=== PATIENT | male | born 1965 | race Caucasian/White ===

== ENCOUNTER 2022-04-25 05:35 | Inpatient (IN) | payer OTHER, SELFPAY ==
[2022-04-25] VITALS (28 sets, daily range): BP systolic 82–149; BP diastolic 53–97; PULSE 51–104; RESP 0–21; TEMP 36.2–36.6; O2SAT 85–100; BMI 21.7
--- NOTE | ~2022-04-25 | CT_ITS ---
EXAMINATION: CT abdomen pelvis wo con DATE: 04/25/2022 08:02 INDICATION: Abdominal pain TECHNIQUE: Computed tomography (CT) of the abdomen and pelvis was performed without intravenous contr ast. Automated exposure control and iterative reconstruction technique were employed. The dose-length product was 612.18 mGy-cm. COMPARISON: 11/30/2013 FINDINGS: Mild atelectasis at the bilateral lung bases. Heart size is normal. No pericardial or pleural effusio n. Calcified nodule at the dome of the liver consistent with old granulomatous disease. Cholecystecto my clips the gallbladder fossa. Spleen, pancreas, bilateral adrenal glands and right kidney are mckenna l. Mild left hydronephrosis. No urolithiasis or other obstructing lesion along the course of the left ureter. Bladder is partially decompressed with prominent wall thickening. 8.1 x 7.0 cm ball of stool at the rectum. Masslike suture line at the rectosigmoid junction with short sigmoid colon suggesting prior prior partial colectomy. The appendix is not visualized. No pericecal inflammatory stranding t o suggest acute appendicitis. No bowel obstruction. No free intraperitoneal gas or fluid. No patholog ically enlarged abdominal or pelvic lymphadenopathy. Several small fat-containing ventral hernias. Mi ld lumbar dextrocurvature with severe spondylosis. IMPRESSION: 1. Prominent wall thickening of the partially decompressed bladder which raises concern for cystitis. Correlate with urinalysis. 2. Mild left hydronephrosis without evident obstructing stone or mass. 3. 8.1 x 7.0 cm ball of stool at the rectum and could not exclude this patient with fecal impaction a lthough there is only a small to moderate amount of more proximal colonic stool. Reviewed, dictated and finalized at location A. IMPRESSION: 1. Prominent wall thickening of the partially decompressed bladder which raises concern for cystitis. Correlate with urinalysis. 2. Mild left hydronephrosis without evident obstructing stone or mass. 3. 8.1 x 7.0 cm ball of stool at the rectum and could not exclude this patient with fecal impaction although there is only a small to moderate amount of more proximal colonic stool.
--- NOTE | ~2022-04-25 | CT_ITS ---
EXAMINATION: CT brain wo con DATE: 04/25/2022 06:10 INDICATION: Altered mental status. Unresponsive. TECHNIQUE: Computed tomography (CT) of the head was performed without intravenous contrast. Sagittal and coronal reconstructions were performed. The mA was adjusted according to patient size. Iterative reconstruction technique was employed. The dose-length product was 605.33 mGy-cm. COMPARISON: None FINDINGS: No acute intracranial hemorrhage, acute infarction or abnormal extra axial fluid collection. Symmetri c prominence of the sulci and ventricles entry level marketing assistant with moderate diffuse cerebral volume loss which i s disproportionate for age. No mass/mass effect. The orbits, paranasal sinuses and mastoid air cells are normal. IMPRESSION: 1. Moderate diffuse volume loss which is disproportionate for age. No acute intracranial process. Reviewed, dictated and finalized at location A. IMPRESSION: 1. Moderate diffuse volume loss which is disproportionate for age. No acute int racranial process.
--- NOTE | ~2022-04-25 | XR_ITS ---
EXAMINATION: XR chest 1V portable DATE: 04/25/2022 06:15 INDICATION: Cough TECHNIQUE: frontal view of the chest was obtained. COMPARISON: None FINDINGS: Mild streaky bibasilar atelectasis. No pleural effusion or pneumothorax. The cardiomediastinal silhou ette is normal. Moderate thoracic spondylosis. IMPRESSION: 1. Mild bibasilar atelectasis. Reviewed, dictated and finalized at location A.
--- NOTE | 2022-04-25 05:48 | ECG_ITS ---
Measurements Intervals Hiram Rate: 73 P: 9 MS: 123 QRS: 75 QRSD: 86 T: 51 QT: 394 QTc: 436 Interpretive Statements SINUS RHYTHM BASELINE ARTIFACT- I, II, III, AVL, AVF, V1-V3, V6 NORMAL ECG Electronically Signed On 04-25-2022 8:11:02 CDT by Boyd Benavides D.O.
[2022-04-25 05:49] LABS: Glucose Point of Care 89 mg/dl (65-105)
--- NOTE | 2022-04-25 05:55 | ED.AMS ---
HPI - Altered Mental Status General Chief Complaint: Altered Mental Status <Juanpablo Irizarry MD - Last Filed: 04/25/22 07:08> Stated Complaint: unresponsive, shaking <Juanpablo Irizarry MD - Last Filed: 04/25/22 07:08> Time Seen by Provider: 04/25/22 05:48 <Juanpablo Irizarry MD - Last Filed: 04/25/22 07:08> History of Present Illness HPI narrative: Patient is a 56-year-old male with a history of Down syndrome brought in by EMS due to altered mental status, decreased responsiveness. According to longterm staff they woke him up for breakfast and when he got up he started shaking and became unresponsive. Based on his HI record, he has no history of seizures but spoke to sister who is in [place] right now visiting claims that he had a similar episode last year, but during patient's work-up but they were never able to to prove that he had a seizure, and the episode has not recurred since, but since then he has not been able to walk and is only oriented to himself and only able to talk 1 word at a time. Unable to get any history from the patient due to his altered mental status. Sister confirmed that patient is a DNR. <Juanpablo Irizarry MD - Last Filed: 04/25/22 07:08> Related Data Allergies/Adverse Reactions: Allergies Allergy/AdvReac Type Severity Reaction Status Date / Time No Known Allergies Allergy Unverified 04/15/20 10:25 <Juanpablo Irizarry MD - Last Filed: 04/25/22 07:08> Review of Systems Review of Systems: ROS unobtainable: Yes unobtainable due to mental status <Juanpablo Irizarry MD - Last Filed: 04/25/22 07:08> PMFSH Comments Past medical history: Down syndrome Family history: Unknown Social history: Lives at longterm <Juanpablo Irizarry MD - Last Filed: 04/25/22 07:08> Exam Const: Limitations: altered mental status <Juanpablo Irizarry MD - Last Filed: 04/25/22 07:08> Other: Lethargic <Juanpablo Irizarry MD - Last Filed: 04/25/22 07:08> HENMT: Head: normal to inspection, normocephalic and atraumatic <Juanpablo Irizarry MD - Last Filed: 04/25/22 07:08> Ears: hearing grossly normal bilaterally, TM normal on the right and TM normal on the left <Juanpablo Irizarry MD - Last Filed: 04/25/22 07:08> General nose exam: Normal external nose present, Normal nares present and No nasal discharge present <Juanpablo Irizarry MD - Last Filed: 04/25/22 07:08> Face and sinus: normal facial exam <MD Alicia Dunlap Last Filed: 04/25/22 07:08> Mouth: Yes Normal oral and palatal mucosa present, Yes lip normal and Yes tongue normal <MD Alicia Dunlap Last Filed: 04/25/22 07:08> Throat: tonsils normal and uvula midline <MD Alicia Dunlap Last Filed: 04/25/22 07:08> Eyes: General: appearance normal, both eyes and all related structures <Juanpablo Irizarry MD - Last Filed: 04/25/22 07:08> Pupils: Equal, round and reactive pupils present <MD Alicia Dunlap Last Filed: 04/25/22 07:08> EOM: EOMs intact bilaterally <Juanpablo Irizarry MD - Last Filed: 04/25/22 07:08> Neck: Neck: normal visual inspection <MD Alicia Dunlap Last Filed: 04/25/22 07:08> Chest: Chest palpation & inspection: normal inspection of the chest <Juanpablo Irizarry MD - Last Filed: 04/25/22 07:08> Resp: Effort & Inspection: normal respiratory effort, no respiratory distress and not tachypneic <MD Alicia Dunlap Last Filed: 04/25/22 07:08> Auscultation: clear to auscultation bilaterally, no crackles, no rales, no rhonchi and no wheezes <MD Alicia Dunlap Last Filed: 04/25/22 07:08> Cardio: Rate: regular rate <Juanpablo Irizarry MD - Last Filed: 04/25/22 07:08> Rhythm: regular rhythm <Juanpablo Irizarry MD - Last Filed: 04/25/22 07:08> GI: Inspection: normal to inspection <Juanpablo Irizarry MD - Last Filed: 04/25/22 07:08> GI Palp: No abdominal tenderness, Yes Soft to palpation, No Tenderness to palpation present (GI), No Guarding due to palpation present (GI), N
[2022-04-25 06:07] LABS: Basophils Percent Auto 0.7 % (0.2-1.2); Eosinophils Absolute Auto 0.1 K/mm3 (0-0.3); Eosinophils Percent Auto 0.9 % (0-4.4); Hematocrit 38.5 % (42.0-52.0); Hemoglobin 12.8 g/dL (14.0-18.0); Immature Granulocyte Absolute 0.02 K/mm3 (0.00-0.031); Immature Granulocyte Percent A 0.4 % (0-0.5); Lymphocytes Absolute Auto 1.63 K/mm3 (0.9-3.2); Lymphocytes Percent Auto 30.4 % (18.3-44.2); Mean Corpuscular HGB Conc 33.2 g/dl (32-36); Mean Corpuscular Hemoglobin 34.4 pg (26-34); Mean Corpuscular Volume 103.5 fl (80-100); Mean Platelet Volume 10.1 fl (7.4-10.4); Monocytes Absolute Auto 0.6 K/mm3 (0.1-0.6); Monocytes Percent Auto 10.4 % (2.6-8.5); Neutrophils Absolute Auto 3.1 K/mm3 (1.3-6.7); Neutrophils Percent Auto 57.2 % (45.5-73.1); Platelet Count Result 134 k/mm3 (150-375); Red Blood Count 3.72 M/mm3 (4.6-6.20); Red Cell Distribution Width 13.8 % (11.5-14.5); White Blood Count 5.4 K/mm3 (4.5-10.0)
[2022-04-25 06:20] LABS: Lactic Acid Reflex 3.6 mmol/L (0.7-2.0)
[2022-04-25] MEDS: SODIUM CHLORIDE 0.9% IV 1,000 ML 999 ML IV CONT ×2 (06:42→07:05)
[2022-04-25 06:51] LABS: Appearance Urine Cloudy (Clear); Bilirubin Urine Negative (Negative); Blood Urine 2+ (Negative); Color Urine Other (Yellow); Glucose Urine UA Negative (Negative); Ketones Urine Negative (Negative); Leukocyte Esterase Ur 3+ LEU/UL (Negative); Nitrate Urine Negative (Negative); Protein Urine Negative (Negative); Specific Grav Ur 1.015 (1.001-1.035); Urobilinogen Urine 0.2 mg/dL (<2.0)
[2022-04-25 06:58] LABS: Bacteria Urine Trace /hpf; WBC Clumps Urine Present /HPF; WBC Urine >75 /hpf
[2022-04-25 06:59] LABS: Alanine Aminotransferase 17 U/L (6-50); Albumin Level 3.2 g/dL (3.5-5.1); Alkaline Phosphatase 101 U/L (38-126); Anion Gap 8 mmol/L (8-16); Aspartate Amino Transferase 21 U/L (17-59); Bilirubin,Total 0.6 mg/dL (0.2-1.3); Blood Urea Nitrogen 13 mg/dL (9-20); Calcium 7.6 mg/dL (8.4-10.2); Carbon Dioxide 24 mmol/L (22-30); Chloride 109 mmol/L (98-107); Estimated CRCL calculation 67 ml/min; Estimated Glomerular Filt Rate > 60; Glucose 89 mg/dL (65-110); Potassium 3.7 mmol/L (3.4-5.0); Sodium 141 mmol/L (137-145)
--- NOTE | 2022-04-25 07:04 | PC.NURSE ---
PTs BP 84/53 ERP made aware. Order for 3rd L NS. Pt recieved 1 L with EMS and 1 L here.
[2022-04-25 07:05] LABS: Add Urine Microscopic? YES
[2022-04-25 07:11] LABS: Troponin I < 0.012 ng/mL (0.000-0.034)
[2022-04-25 07:50] LABS: Lipase 26 U/L (23-300)
[2022-04-25 08:16] LABS: SARS-CoV-2 RNA PCR Negative
[2022-04-25 09:05] LABS: Reflex Lactic Acid Yes or No Add Lactic
[2022-04-25] MEDS: MIDODRINE HCL 2.5 MG TABLET 5 MG PO (09:13)
[2022-04-25 09:53] LABS: Lactic Acid 1.8 mmol/L (0.7-2.0)
--- NOTE | 2022-04-25 10:46 | PM.IMHP ---
H&P: HPI History of Present Illness Date/Time: 04/25/22 0953 Chief Complaint: AMS Narrative: This 56 year old male patient with significant PMH of Down's Syndrome, pseudoseizures, Gout, GERD, and hypothyroidism who resides in a [facility] is brought to the ER via EMS after having a change in his mental status today. Pt. himself is a poor historian and at best only speaks one word at a time, however, today he is not talking when asked questions. According to [facility] staff, the patient had just woke up for breakfast and when he got up, he started shaking and became unresponsive. Upon the ER physician speaking to the POA, who is currently in the [place], she tells him of previous episodes identical to this that prompted evaluation and it was determined that the pt. was having pseudoseizures as his workup was normal. Since then he speaks very little, but is not treated with any anti-epileptics and he has not had any noted seizures. The pt. is a DNR comfort according to her but she would like any treatable condition treated. In ER his workup is significant for UTI with 3+ Leuks, 2+ Blood and >[address] head was negative for any intracranial hemorrhage, and no midline shift or mass effect. Review of Systems Review of Systems: Pt. is lying on stretcher in no acute distress. He is alert, but does not answer any questions. ROS unobtainable: Yes unobtainable due to mental status PMFSH Past Medical History Medical History Down's syndrome GERD (gastroesophageal reflux disease) Gout Hypothyroidism Pseudoseizures Social History Social History Social History[facility] Smoking packs per day: 0 Smoking cigarettes per day: 0.0 Alcohol intake: unknown Substance use: unknown Living arrangements: [facility] Occupation/Education: other Additional occupation/education comments: Disabled Gender identity (if verbalized by the patient): Male Meds Home Medications and Allergies Allergies Allergy/AdvReac Type Severity Reaction Status Date / Time No Known Allergies Allergy Unverified 04/15/20 10:25 Vital Signs Vital Signs - 24 hr 04/25/22 05:34 04/25/22 05:40 04/25/22 05:46 Temperature 97.1 F L Pulse Rate 69 76 Respiratory Rate 16 18 16 Blood Pressure 96/65 L 97/64 L Pulse Oximetry 95 04/25/22 06:55 04/25/22 05:45 04/25/22 06:18 Temperature Pulse Rate 58 L 76 69 Respiratory Rate 12 16 10 L Blood Pressure 109/55 L 97/64 L Pulse Oximetry 94 04/25/22 06:32 04/25/22 06:46 04/25/22 06:53 Temperature Pulse Rate 72 62 62 Respiratory Rate 19 14 18 Blood Pressure 82/57 L Pulse Oximetry 96 04/25/22 06:54 04/25/22 07:00 04/25/22 07:01 Temperature Pulse Rate 57 L 59 L 60 Respiratory Rate 9 L 7 L 7 L Blood Pressure 109/55 L 82/55 L Pulse Oximetry 96 95 04/25/22 07:02 04/25/22 07:15 04/25/22 07:16 Temperature Pulse Rate 61 74 68 Respiratory Rate 7 L 16 15 Blood Pressure 84/53 L 96/68 L Pulse Oximetry 95 100 04/25/22 08:02 04/25/22 08:45 04/25/22 08:46 Temperature Pulse Rate 60 51 L 54 L Respiratory Rate 11 L 0 L 11 L Blood Pressure 96/64 L Pulse Oximetry 04/25/22 09:00 04/25/22 09:15 04/25/22 09:30 Temperature Pulse Rate 59 L 54 L 65 Respiratory Rate 7 L 10 L 21 H Blood Pressure 82/62 L 98/65 L 110/92 H Pulse Oximetry 97 99 04/25/22 10:00 Temperature Pulse Rate 57 L Respiratory Rate 8 L Blood Pressure 89/65 L Pulse Oximetry Exam Narrative: Adult male patient noted to be lying supine on his stretcher at this time. Const: General: comfortable and no acute distress Other: Smiles at me upon my entry into the room, but does not answer any questions. He will not make one work statements either. HENMT: General nose exam: Normal nares present and no epistaxis Mouth: Yes moist mucous
[2022-04-25] MEDS: SODIUM CHLORIDE 0.9% IV 1,000 ML 100 ML IV CONT (11:11)
--- NOTE | 2022-04-25 11:41 | ADMGEN ---
This patient, Fer Mojica, was admitted to Medical Room 342-01. Patient/family oriented to hospital policies and general routines including ID bracelet, bed and alarms, visiting hours, pain management, procedures, bathroom and other care routines, personal items, smoking policy, room service/diet, and visiting hours. Information on how to activate the Rapid Response Team has been discussed. Patient/Family are encouraged to report perceived risks to care and to ask questions if they do not understand what they are told or what they should do.
[2022-04-25 12:07] LABS: Lactic Acid Reflex 0.8 mmol/L (0.7-2.0)
[2022-04-25 17:15] LABS: Free T4 Free Thyroxine Reflex 1.14 ng/dL (0.78-2.19)
[2022-04-26] VITALS (8 sets, daily range): BP systolic 97–98; BP diastolic 52–67; PULSE 56–78; RESP 16–18; TEMP 36.6–36.8; O2SAT 92–100
[2022-04-26 05:06] LABS: Total Triiodothyronine (T3) 2.71 NG/ML (0.97-1.69)
[2022-04-26] MEDS: SODIUM CHLORIDE 0.9% IV 1,000 ML 100 ML IV CONT ×2 (05:09→15:51)
[2022-04-26 05:42] LABS: Basophils Absolute Auto 0.1 K/mm3 (0.0-0.1); Eosinophils Percent Auto 0.4 % (0-4.4); Hematocrit 36.6 % (42.0-52.0); Hemoglobin 12.5 g/dL (14.0-18.0); Immature Granulocyte Absolute 0.02 K/mm3 (0.00-0.031); Immature Granulocyte Percent A 0.4 % (0-0.5); Lymphocytes Absolute Auto 1.56 K/mm3 (0.9-3.2); Lymphocytes Percent Auto 29.7 % (18.3-44.2); Mean Corpuscular HGB Conc 34.2 g/dl (32-36); Mean Corpuscular Hemoglobin 34.8 pg (26-34); Mean Corpuscular Volume 101.9 fl (80-100); Mean Platelet Volume 10.5 fl (7.4-10.4); Monocytes Absolute Auto 0.5 K/mm3 (0.1-0.6); Monocytes Percent Auto 9.1 % (2.6-8.5); Neutrophils Absolute Auto 3.1 K/mm3 (1.3-6.7); Neutrophils Percent Auto 59.4 % (45.5-73.1); Platelet Count Result 145 k/mm3 (150-375); Red Blood Count 3.59 M/mm3 (4.6-6.20); Red Cell Distribution Width 13.6 % (11.5-14.5); White Blood Count 5.3 K/mm3 (4.5-10.0)
[2022-04-26 05:56] LABS: Alanine Aminotransferase 16 U/L (6-50); Albumin Level 2.8 g/dL (3.5-5.1); Alkaline Phosphatase 87 U/L (38-126); Anion Gap 7 mmol/L (8-16); Aspartate Amino Transferase 20 U/L (17-59); Bilirubin,Total 0.4 mg/dL (0.2-1.3); Blood Urea Nitrogen 12 mg/dL (9-20); Carbon Dioxide 25 mmol/L (22-30); Chloride 106 mmol/L (98-107); Estimated CRCL calculation 84 ml/min; Estimated Glomerular Filt Rate > 60; Glucose 91 mg/dL (65-110); Potassium 3.2 mmol/L (3.4-5.0); Sodium 138 mmol/L (137-145)
[2022-04-26] MEDS: ENOXAPARIN 40 MG/0.4 ML SYRINGE SUB-Q (09:36)
[2022-04-26] MEDS: PANTOPRAZOLE SODIUM IV 40 MG VIAL IV PUSH (09:37)
--- NOTE | 2022-04-26 11:22 | PM.IMPN ---
Progress Note: A&P Assessment and Plan (1) Acute UTI: Code(s): N39.0 - Urinary tract infection, site not specified Status: Acute Assessment and Plan: - Rocephin 1G started in ED and will be continued. - Continue NS at 100 ml/hr. - Awaiting urine culture results. - Lactic acid trended down to 0.8 after hydration. - Monitor labs and VS. Thus far they are stable. - Preliminary BC results are negative for any growth x2. (2) Altered mental status: Code(s): R41.82 - Altered mental status, unspecified Status: Acute Assessment and Plan: - Attempt to re-orient. - See POC for Problem #1. - Seizure precautions. - Fall precautions. (3) Hypothyroidism: Code(s): E03.9 - Hypothyroidism, unspecified Status: Acute Assessment and Plan: - Home medication of Levothyroxine 150 mcg reordered. - TSH is elevated at 11.800, but T4 is normal at 1.14. No adjustments to dose made. (4) GERD (gastroesophageal reflux disease): Code(s): K21.9 - Gastro-esophageal reflux disease without esophagitis Status: Acute Assessment and Plan: - PPI Therapy, Protonix 40 mg daily. (5) Gout: Code(s): M10.9 - Gout, unspecified Status: Acute Assessment and Plan: - Will monitor and re-order home meds as needed when they are verified. (6) Constipation: Code(s): K59.00 - Constipation, unspecified Status: Acute Assessment and Plan: - Fleets Enema ordered. - Senokot daily. - PRN Miralax ordered. (7) Hypotension: Code(s): I95.9 - Hypotension, unspecified Status: Acute Assessment and Plan: - Midodrine is continued from home medication list. - Monitor VS. Time Spent With Patient Time with patient: 15 - 25 minutes Subjective Date/time seen: 04/26/22914 This patient was examined at the bedside today in interval assessment after being admitted for acute UTI and altered mental status. Patient is not conversational, pleasant does not make an attempt to answer any questions, only smiles at me. He does not appear to be in any acute distress, he is lying supine in his bed at this time he does appear to be comfortable. Urine culture is still pending. Preliminary blood cultures have reported preliminarily negative for any growth. Review of Systems Review of Systems: ROS unobtainable: Yes unobtainable due to mental status Exam Narrative: Adult male patient lying supine in bed at this time in no acute distress. Const: General: comfortable and no acute distress Other: Not conversational, only smiles. Does not follow commands. HENMT: General nose exam: Normal nares present and no epistaxis Mouth: Yes moist mucous membranes Eyes: General: appearance normal, both eyes and all related structures Sclera: sclerae normal and normal sclerae Pupils: Equal, round and reactive pupils present EOM: EOM not intact bilaterally (Unable to assess as pt will not follow commands.) Neck: Neck: supple and no JVD Thyroid: thyroid normal Carotids: no bruits Lymphatic: lymphadenopathy not noted Chest: Other: No signs of being tender to palpation. Resp: Effort & Inspection: abnormal respiratory effort (Pt. will not follow commands to breathe deeply.) Auscultation: diminished lung sounds diffuse (Secondary to effort.) Cardio: Rate: regular rate Rhythm: regular rhythm Heart sounds: no gallops, no murmurs and no rubs GI: Inspection: non-distended Auscultation: normal bowel sounds Skin: General skin exam: normal color and no rashes or lesions noted Lesions: no lesions noted Rashes: no rashes noted Wounds: no wounds Neuro: General: No gait normal (unable to assess.) Cranial nerves: Yes Equal, round and reactive pupils present Speech: No normal speech (Mostly non-verbal. Occasionally says one word sentences.) Other: Will not follow commands to adequately assess the Neurological system. Extrem: General: normal to inspection, no tono
[2022-04-26] MEDS: LACTASE 3,000 UNIT TABLET 9000 UNIT PO (17:26)
[2022-04-26] MEDS: MIDODRINE HCL 2.5 MG TABLET 5 MG PO (17:26)
[2022-04-26] MEDS: MEMANTINE 10 MG TABLET PO (17:27)
[2022-04-26] MEDS: FAMOTIDINE 20 MG TABLET PO (18:29)
[2022-04-26] MEDS: SENNA/DOCUSATE SODIUM TABLET 1 TAB PO (22:44)
[2022-04-26] MEDS: MINERAL OIL/WHITE PETROLATUM OINTMENT 1 APPLIC EACH EYE (22:44)
[2022-04-27] VITALS (10 sets, daily range): BP systolic 80–161; BP diastolic 56–95; PULSE 59–102; RESP 16–20; TEMP 36.2–36.8; O2SAT 92–97
[2022-04-27] MEDS: SODIUM CHLORIDE 0.9% IV 1,000 ML 100 ML IV CONT ×2 (03:59→14:05)
[2022-04-27 05:46] LABS: Basophils Absolute Auto 0.1 K/mm3 (0.0-0.1); Eosinophils Absolute Auto 0.1 K/mm3 (0-0.3); Immature Granulocyte Absolute 0.01 K/mm3 (0.00-0.031); Immature Granulocyte Percent A 0.2 % (0-0.5); Lymphocytes Absolute Auto 1.75 K/mm3 (0.9-3.2); Lymphocytes Percent Auto 33.7 % (18.3-44.2); Mean Corpuscular HGB Conc 33.3 g/dl (32-36); Mean Corpuscular Hemoglobin 34.1 pg (26-34); Mean Corpuscular Volume 102.3 fl (80-100); Mean Platelet Volume 10.2 fl (7.4-10.4); Monocytes Absolute Auto 0.5 K/mm3 (0.1-0.6); Monocytes Percent Auto 8.9 % (2.6-8.5); Neutrophils Absolute Auto 2.9 K/mm3 (1.3-6.7); Neutrophils Percent Auto 55.2 % (45.5-73.1); Platelet Count Result 128 k/mm3 (150-375); Red Blood Count 3.52 M/mm3 (4.6-6.20); Red Cell Distribution Width 13.9 % (11.5-14.5); White Blood Count 5.2 K/mm3 (4.5-10.0)
[2022-04-27 06:01] LABS: Alanine Aminotransferase 15 U/L (6-50); Albumin Level 2.9 g/dL (3.5-5.1); Alkaline Phosphatase 83 U/L (38-126); Anion Gap 6 mmol/L (8-16); Aspartate Amino Transferase 21 U/L (17-59); Bilirubin,Total 0.4 mg/dL (0.2-1.3); Blood Urea Nitrogen 11 mg/dL (9-20); Calcium 7.8 mg/dL (8.4-10.2); Carbon Dioxide 30 mmol/L (22-30); Chloride 106 mmol/L (98-107); Estimated CRCL calculation 74 ml/min; Estimated Glomerular Filt Rate > 60; Glucose 90 mg/dL (65-110); Magnesium 1.8 mg/dL (1.6-2.3); Potassium 3.3 mmol/L (3.4-5.0); Sodium 142 mmol/L (137-145)
[2022-04-27] MEDS: LACTASE 3,000 UNIT TABLET 9000 UNIT PO ×3 (09:08→15:31)
[2022-04-27] MEDS: ASPIRIN 81 MG CHEWABLE TABLET PO (09:08)
[2022-04-27] MEDS: ENOXAPARIN 40 MG/0.4 ML SYRINGE SUB-Q (09:08)
[2022-04-27] MEDS: ATORVASTATIN 40 MG TABLET PO (09:08)
[2022-04-27] MEDS: MEMANTINE 10 MG TABLET PO ×2 (09:09→15:31)
[2022-04-27] MEDS: FLUTICASONE PROPIONATE 0.05% NA SPR 16 GM BTL (*BKC) 2 SPRAY NASAL (09:09)
[2022-04-27] MEDS: LORATADINE 10 MG TABLET PO (09:09)
[2022-04-27] MEDS: LEVOTHYROXINE SODIUM 150 MCG TABLET PO (09:09)
[2022-04-27] MEDS: MIDODRINE HCL 2.5 MG TABLET 5 MG PO ×2 (09:09→15:31)
[2022-04-27] MEDS: PANTOPRAZOLE SODIUM IV 40 MG VIAL IV PUSH (09:10)
[2022-04-27] MEDS: MONTELUKAST SODIUM 10 MG TABLET PO (09:10)
[2022-04-27] MEDS: FAMOTIDINE 20 MG TABLET PO ×2 (09:17→15:31)
[2022-04-27] MEDS: AMOXICILLIN/CLAVULANATE K 500-125 MG TAB 1 TABLET PO ×3 (11:52→20:59)
--- NOTE | 2022-04-27 14:49 | PC.NURSE ---
[employer] Supervisor spoke with hospitalist Dianne and was ordered to give midodrine earlier than scheduled 1700 dose due to low blood pressure.
--- NOTE | 2022-04-27 15:17 | PM.IMPN ---
Progress Note: A&P Assessment and Plan (1) Acute UTI: Code(s): N39.0 - Urinary tract infection, site not specified Status: Acute Assessment and Plan: - Urine culture grew out Pansensitive E.coli. Rocephin is discontinued and in it's place, according to the sensitivity, Augmentin is started. - Preliminary BC results are negative for any growth x2. (2) Altered mental status: Code(s): R41.82 - Altered mental status, unspecified Status: Acute Assessment and Plan: - Attempt to re-orient. - See POC for Problem #1. - Seizure precautions. - Fall precautions. (3) Hypothyroidism: Code(s): E03.9 - Hypothyroidism, unspecified Status: Acute Assessment and Plan: - Home medication of Levothyroxine 150 mcg reordered. - TSH is elevated at 11.800, but T4 is normal at 1.14. No adjustments to dose made. (4) GERD (gastroesophageal reflux disease): Code(s): K21.9 - Gastro-esophageal reflux disease without esophagitis Status: Acute Assessment and Plan: - PPI Therapy, Protonix 40 mg daily. (5) Gout: Code(s): M10.9 - Gout, unspecified Status: Acute Assessment and Plan: - Will monitor and re-order home meds as needed when they are verified. (6) Constipation: Code(s): K59.00 - Constipation, unspecified Status: Acute Assessment and Plan: - Fleets Enema ordered. - Senokot daily. - PRN Miralax ordered. (7) Hypotension: Code(s): I95.9 - Hypotension, unspecified Status: Acute Assessment and Plan: - Midodrine is continued from home medication list. - Monitor VS. - 04/27/22: This pt. became hypotensive at 1400 this afternoon with SBP of 80. It was not called to me by the RN, so my reaction time was delayed until I reviewed afternoon vitals. His Midodrine that is due at 1700 was ordered to be given early and a 1L fluid bolus is ordered. Pt's remaining VS are without abnormality. Time Spent With Patient Time with patient: 15 - 25 minutes Subjective Date/time seen: 04/27/22 0938 This pt was examined at the bedside today in interval assessment. He remains the same and appears to be in no acute distress. He arouses to verbal stimulation and he verbalized to me, Kyree, for the first time in three days. His Urine culture resulted and was positive for herron sensitive E.coli. Therefore, his Rocephin was changed to Augmentin. This afternoon the patient had a low SBP of 80. His Midodrine dose was given early and he was ordered a fluid bolus of 1L. Pt. remains alert and showing no signs of acute distress. He will be ready for discharge either tomorrow or the next day after making sure his BP is stable. Review of Systems Review of Systems: ROS unobtainable: Yes unobtainable due to mental status Exam Narrative: Adult male patient lying supine in bed at this time in no acute distress. Const: General: comfortable and no acute distress Other: Not conversational, only smiles. Does not follow commands. HENMT: General nose exam: Normal nares present and no epistaxis Mouth: Yes moist mucous membranes Eyes: General: appearance normal, both eyes and all related structures Sclera: sclerae normal and normal sclerae Pupils: Equal, round and reactive pupils present EOM: EOM not intact bilaterally (Unable to assess as pt will not follow commands.) Neck: Neck: supple and no JVD Thyroid: thyroid normal Carotids: no bruits Lymphatic: lymphadenopathy not noted Chest: Other: No signs of being tender to palpation. Resp: Effort & Inspection: abnormal respiratory effort (Pt. will not follow commands to breathe deeply.) Auscultation: diminished lung sounds diffuse (Secondary to effort.) Cardio: Rate: regular rate Rhythm: regular rhythm Heart sounds: no gallops, no murmurs and no rubs GI: Inspection: non-distended Auscultation: normal bowel sounds Skin: General skin exam: normal color and no rashes or lesions noted Lesion
[2022-04-27] MEDS: SODIUM CHLORIDE 0.9% IV 1,000 ML 999 ML IV CONT (15:41)
[2022-04-27] MEDS: SENNA/DOCUSATE SODIUM TABLET 1 TAB PO (20:53)
[2022-04-27] MEDS: MINERAL OIL/WHITE PETROLATUM OINTMENT 1 APPLIC EACH EYE (20:53)
[2022-04-28] VITALS: PULSE 60
[2022-04-28] MEDS: SODIUM CHLORIDE 0.9% IV 1,000 ML 100 ML IV CONT ×2 (02:19→13:28)
[2022-04-28 04:04] VITALS: PULSE 63
[2022-04-28 04:42] VITALS: BP 107/53; PULSE 88; RESP 20; TEMP 36.6; O2SAT 97
[2022-04-28 06:19] LABS: Basophils Percent Auto 0.6 % (0.2-1.2); Eosinophils Percent Auto 0.6 % (0-4.4); Hematocrit 40.2 % (42.0-52.0); Hemoglobin 13.3 g/dL (14.0-18.0); Immature Granulocyte Absolute 0.01 K/mm3 (0.00-0.031); Immature Granulocyte Percent A 0.2 % (0-0.5); Lymphocytes Absolute Auto 1.86 K/mm3 (0.9-3.2); Lymphocytes Percent Auto 29.6 % (18.3-44.2); Mean Corpuscular HGB Conc 33.1 g/dl (32-36); Mean Corpuscular Hemoglobin 34.1 pg (26-34); Mean Corpuscular Volume 103.1 fl (80-100); Mean Platelet Volume 10.1 fl (7.4-10.4); Monocytes Absolute Auto 0.5 K/mm3 (0.1-0.6); Monocytes Percent Auto 7.2 % (2.6-8.5); Neutrophils Absolute Auto 3.9 K/mm3 (1.3-6.7); Neutrophils Percent Auto 61.8 % (45.5-73.1); Platelet Count Result 146 k/mm3 (150-375); Red Cell Distribution Width 13.9 % (11.5-14.5); White Blood Count 6.3 K/mm3 (4.5-10.0)
[2022-04-28] MEDS: AMOXICILLIN/CLAVULANATE K 500-125 MG TAB 1 TABLET PO ×2 (06:21→13:23)
[2022-04-28 06:41] LABS: Alanine Aminotransferase 16 U/L (6-50); Albumin Level 3.3 g/dL (3.5-5.1); Alkaline Phosphatase 95 U/L (38-126); Anion Gap 6 mmol/L (8-16); Aspartate Amino Transferase 25 U/L (17-59); Bilirubin,Total 0.7 mg/dL (0.2-1.3); Blood Urea Nitrogen 9 mg/dL (9-20); Calcium 8.1 mg/dL (8.4-10.2); Carbon Dioxide 33 mmol/L (22-30); Chloride 104 mmol/L (98-107); Estimated CRCL calculation 74 ml/min; Estimated Glomerular Filt Rate > 60; Glucose 90 mg/dL (65-110); Magnesium 1.9 mg/dL (1.6-2.3); Potassium 3.5 mmol/L (3.4-5.0); Sodium 143 mmol/L (137-145)
--- NOTE | 2022-04-28 07:10 | PM.DS ---
DS: Admitting Diagnosis Discharge Date 04/28/2022 Admitting Diagnosis Acute UTI, Altered Mental Status, Hypothyroidism, GERD, Gout, Constipation, Hypotension DS: Discharge Diagnosis Discharge Diagnosis (1) Acute UTI: Code(s): N39.0 - Urinary tract infection, site not specified Status: Acute Assessment and Plan: - Urine culture grew out Pansensitive E.coli. Rocephin is discontinued and in it's place, according to the sensitivity, Augmentin is started. It will be continued for 9 days. - Blood cultures negative. (2) Altered mental status: Code(s): R41.82 - Altered mental status, unspecified Status: Acute Assessment and Plan: - Attempt to re-orient. - See POC for Problem #1. - Seizure precautions. - Fall precautions. - Pt. is at baseline and there have been no noted, or appreciable seizures or associated activity since his admission . (3) Hypothyroidism: Code(s): E03.9 - Hypothyroidism, unspecified Status: Acute Assessment and Plan: - Home medication of Levothyroxine 150 mcg reordered. - TSH is elevated at 11.800, but T4 is normal at 1.14. No adjustments to dose made. (4) GERD (gastroesophageal reflux disease): Code(s): K21.9 - Gastro-esophageal reflux disease without esophagitis Status: Acute Assessment and Plan: - PPI Therapy, Protonix 40 mg daily. (5) Gout: Code(s): M10.9 - Gout, unspecified Status: Acute Assessment and Plan: - Will monitor and re-order home meds as needed when they are verified. (6) Constipation: Code(s): K59.00 - Constipation, unspecified Status: Acute Assessment and Plan: - Fleets Enema ordered. - Senokot daily. - PRN Miralax ordered. (7) Hypotension: Code(s): I95.9 - Hypotension, unspecified Status: Acute Assessment and Plan: - Midodrine is continued from home medication list. - Monitor VS. - 04/27/22: This pt. became hypotensive at 1400 this afternoon with SBP of 80. It was not called to me by the RN, so my reaction time was delayed until I reviewed afternoon vitals. His Midodrine that is due at 1700 was ordered to be given early and a 1L fluid bolus is ordered. Pt's remaining VS are without abnormality. - 04/28/22: Pt's BP responded nicely to Midodrine and a fluid Bolus and has remained stable. DS: Summary Hospital Course Reason for hospitalization: Altered Mental Status and UTI Hospital Course: This 56 year old male patient with significant PMH of Down's Syndrome, pseudoseizures, Gout, GERD, and hypothyroidism who resides in a [facility] is brought to the ER via EMS after having a change in his mental status on the day of admission at 04/25/2022. Pt. at baseline is a poor historian and only speaks in one word sentences, and even then only occasionally. Therefore getting information from him was difficult. The history given by the SNF was that the patient had just woke up for breakfast and when he got up, he started shaking and became unresponsive. Upon the ER physician speaking to the MAC, who is currently in the [facility], she tells him of previous episodes identical to this that prompted evaluation and it was determined that the pt. was having pseudoseizures as his workup was normal. Since then he speaks very little, but is not treated with any anti-epileptics and he has not had any noted seizures. The pt. is a DNR comfort according to her but she would like any treatable condition treated. In ER his workup is significant for UTI with 3+ Leuks, 2+ Blood and >[address] head was negative for any intracranial hemorrhage, and no midline shift or mass effect. His urine culture resulted positive for pansensitive E.coli and he was started on Augmentin po yesterday. He has improved and is stable for discharge at this time. He will be placed on 9 days of Augmentin therapy. Status at Discharge Functional status at discharge: wheelchair bound Overall status at discharge:
[2022-04-28] MEDS: FAMOTIDINE 20 MG TABLET PO (09:50)
[2022-04-28] MEDS: ASPIRIN 81 MG CHEWABLE TABLET PO (09:50)
[2022-04-28] MEDS: LACTASE 3,000 UNIT TABLET 9000 UNIT PO ×2 (09:50→13:23)
[2022-04-28] MEDS: ENOXAPARIN 40 MG/0.4 ML SYRINGE SUB-Q (09:50)
[2022-04-28] MEDS: ATORVASTATIN 40 MG TABLET PO (09:50)
[2022-04-28] MEDS: MEMANTINE 10 MG TABLET PO (09:51)
[2022-04-28] MEDS: PANTOPRAZOLE SODIUM IV 40 MG VIAL IV PUSH (09:51)
[2022-04-28] MEDS: FLUTICASONE PROPIONATE 0.05% NA SPR 16 GM BTL (*BKC) 2 SPRAY NASAL (09:51)
[2022-04-28] MEDS: LORATADINE 10 MG TABLET PO (09:51)
[2022-04-28] MEDS: LEVOTHYROXINE SODIUM 150 MCG TABLET PO (09:51)
[2022-04-28] MEDS: MIDODRINE HCL 2.5 MG TABLET 5 MG PO ×2 (09:51→13:33)
[2022-04-28] MEDS: MONTELUKAST SODIUM 10 MG TABLET PO (09:51)
[2022-04-28 13:02] VITALS: BP 89/58; PULSE 56; RESP 16; TEMP 36.4; O2SAT 96
--- NOTE | 2022-04-28 13:06 | PC.NURSE ---
Blood pressure is running low (see vitals). [employer] Blocking Operator spoke with hospitalist Beth. [facility] to give midodrine early and patient to discharge back to facility.
[2022-04-28 13:18] LABS: EDCOVIDSCREEN Negative (Negative)
== END 2022-04-28 14:15 | DRG 690 ==
LOC: ANHED 10:26 → ANH3MED 10:30
PROVIDERS: Emergency Medicine; Admitting Provider Chiropractor; Emergency Provider Emergency Medicine; PCP Family Medicine; Visit Provider Nurse Practitioner Adult Health
DX: N39.0 Urinary tract infection, site not specified (principal); I95.9 Hypotension, unspecified; Q90.9 Down syndrome, unspecified; R56.9 Unspecified convulsions; K21.9 Gastro-esophageal reflux disease without esophagitis; E03.9 Hypothyroidism, unspecified; M10.9 Gout, unspecified; K59.00 Constipation, unspecified; B96.20 Unspecified Escherichia coli [E. coli] as the cause of diseases classified elsewhere; Z20.822 Contact with and (suspected) exposure to COVID-19; Z66 Do not resuscitate
CPT/HCPCS: 36415; 70450; 71045; 74176; 80053; 81001; 82948; 83605; 83690; 83735; 84439; 84443; 84480; 84484; 85025; 87040; 87077; 87086; 87186; 87426; 93005; 96361; 96365; 96372; 96375; 99285; A9270; C9113; C9803; G0378; J0696; J1650; J7030; U0003; U0005

== ENCOUNTER 2022-06-06 11:56 | Emergency (ER) | payer OTHER, SELFPAY ==
--- NOTE | ~2022-06-06 | XR_ITS ---
XR chest 1V portable DATE: 06/06/2022 12:39 INDICATION: Shortness of breath TECHNIQUE: Portable AP chest on 06/06/2022 1235 hours COMPARISON: 04/25/2022 portable AP chest FINDINGS: There is mild infiltrate or atelectasis at the right lung base and more prominent infiltrat e or atelectasis at the left lower lobe. No pleural effusion or pulmonary vascular congestion or pneumothorax. Heart size is likely within normal range. Diffuse osteopenia. Levoscoliosis and degenerative change of the thoracic spine. Dextroscoliosis of t he lumbar spine. IMPRESSION: Bilateral lower lung infiltrate and/or atelectasis, left greater than right Reviewed, dictated and finalized at location A. IMPRESSION: Bilateral lower lung infiltrate and/or atelectasis, left greater th an right
[2022-06-06 12:03] VITALS: BP 98/62; PULSE 65; RESP 18; TEMP 36.7; O2SAT 98
[2022-06-06 12:14] VITALS: O2SAT 98
[2022-06-06 12:41] LABS: Basophils Absolute Auto 0.1 K/mm3 (0.0-0.1); Basophils Percent Auto 0.8 % (0.2-1.2); Eosinophils Percent Auto 0.5 % (0-4.4); Hematocrit 41.1 % (42.0-52.0); Hemoglobin 13.8 g/dL (14.0-18.0); Immature Granulocyte Absolute 0.01 K/mm3 (0.00-0.031); Immature Granulocyte Percent A 0.2 % (0-0.5); Lymphocytes Absolute Auto 1.98 K/mm3 (0.9-3.2); Lymphocytes Percent Auto 33.6 % (18.3-44.2); Mean Corpuscular HGB Conc 33.6 g/dl (32-36); Mean Corpuscular Hemoglobin 34.4 pg (26-34); Mean Corpuscular Volume 102.5 fl (80-100); Mean Platelet Volume 9.5 fl (7.4-10.4); Monocytes Absolute Auto 0.5 K/mm3 (0.1-0.6); Monocytes Percent Auto 8.1 % (2.6-8.5); Neutrophils Absolute Auto 3.4 K/mm3 (1.3-6.7); Neutrophils Percent Auto 56.8 % (45.5-73.1); Platelet Count Result 223 k/mm3 (150-375); Red Blood Count 4.01 M/mm3 (4.6-6.20); Red Cell Distribution Width 13.1 % (11.5-14.5); White Blood Count 5.9 K/mm3 (4.5-10.0)
[2022-06-06 12:51] LABS: Alanine Aminotransferase 26 U/L (6-50); Albumin Level 3.5 g/dL (3.5-5.1); Alkaline Phosphatase 126 U/L (38-126); Anion Gap 5 mmol/L (8-16); Aspartate Amino Transferase 24 U/L (17-59); Bilirubin,Total 0.5 mg/dL (0.2-1.3); Blood Urea Nitrogen 13 mg/dL (9-20); Calcium 8.7 mg/dL (8.4-10.2); Carbon Dioxide 30 mmol/L (22-30); Chloride 105 mmol/L (98-107); Estimated CRCL calculation 80 ml/min; Estimated Glomerular Filt Rate > 60; Glucose 105 mg/dL (65-110); Potassium 3.9 mmol/L (3.4-5.0); Sodium 140 mmol/L (137-145)
--- NOTE | 2022-06-06 13:01 | ED.GENADULT ---
HPI - General Adult General Chief complaint: Unspecified Stated complaint: ?hypoxia, resolved Time Seen by Provider: 06/06/22 12:00 History of Present Illness HPI narrative: Patient is a 56-year-old male with history of Down syndrome and dementia who presents ER with concerns for low O2 sat. EMS arrived to [facility] for report of low O2 saturation patient had normal O2 sat for them. Patient does have some cool extremities which may make it harder to get a reading. There is no reports that patient has had any recent cough or fever. Patient unable to provide history. Related Data Home Medications Medication Instructions Recorded Confirmed aspirin 81 mg chewable tablet 81 mg PO DAILY 04/25/22 04/25/22 atorvastatin 40 mg tablet 40 mg PO DAILY 04/25/22 04/25/22 carbamide peroxide 6.5 % ear drops 4 drp otic (ear) WEEKLY 04/25/22 04/25/22 (Debrox) famotidine 20 mg tablet 20 mg PO BID 04/25/22 04/25/22 fluticasone propionate 50 2 spray intranasal DAILY 04/25/22 04/25/22 mcg/actuation nasal spray,suspension lactase 9,000 unit tablet (Lactase 9,000 unit PO TID 04/25/22 04/25/22 Fast Acting) levothyroxine 150 mcg tablet 150 mcg PO DAILY 04/25/22 04/25/22 loratadine 10 mg tablet 10 mg PO DAILY 04/25/22 04/25/22 melatonin 5 mg tablet 10 mg PO HS PRN Insomnia 04/25/22 04/25/22 memantine 10 mg tablet 10 mg PO BID 04/25/22 04/25/22 midodrine 5 mg tablet 5 mg PO BID 04/25/22 04/25/22 montelukast 10 mg tablet 10 mg PO DAILY 04/25/22 04/25/22 polyethylene glycol 3350 17 17 g PO DAILY PRN Constipation 04/25/22 04/25/22 gram/dose oral powder (Miralax) white petrolatum-mineral oil 83 1 applic EACH EYE HS 04/25/22 04/25/22 %-15 % eye ointment (Artificial Eye Lubricant) Allergies Allergy/AdvReac Type Severity Reaction Status Date / Time No Known Allergies Allergy Unverified 04/15/20 10:25 Review of Systems Review of Systems: ROS unobtainable: Yes unobtainable due to mental status PMFSH Past Medical History Medical History (Updated 06/06/22 @ 14:10 by Parth [place] MD) Dementia Down's syndrome GERD (gastroesophageal reflux disease) Gout Hypothyroidism Pseudoseizures Social History Social History Social History: [facility] Smoking packs per day: 0 Smoking cigarettes per day: 0.0 Smoking status: Never smoker Alcohol intake: never Substance use: never Substance use type: does not use Additional occupation/education comments: Disabled Gender identity (if verbalized by the patient): Male Spiritual care concerns: No (unable to assess) Exam Narrative: GENERAL: Chronically ill-appearing, well-nourished, and in no acute distress. HEAD: Normocephalic, atraumatic. EYES: PERRL and EOMI. ENT: Mucous membranes moist. CHEST: Clear to auscultation. No respiratory distress. HEART: Regular rate and rhythm. Normal peripheral pulses. ABDOMEN: Soft, nontender, nondistended. EXTREMITIES: Normal range of motion. No edema. NEURO: Awake and alert, occasionally follows commands. Course Course Emergency Course: Unremarkable evaluation. No hypoxia. Discharge back to [facility]. Vital Signs Vital signs: Vital Signs Pulse Rate 65 06/06/22 12:03 Respiratory Rate 18 06/06/22 12:03 Pulse Oximetry 98 06/06/22 12:03 Oxygen Delivery Room Air 06/06/22 12:03 Pulse Rate 65 06/06/22 12:03 Respiratory Rate 18 06/06/22 12:03 Pulse Oximetry 98 06/06/22 12:14 Oxygen Delivery Room Air 06/06/22 12:14 Medical Decision Making Vital Signs Vital Signs: Vital Signs Pulse Rate 65 06/06/22 12:03 Respiratory Rate 18 06/06/22 12:03 Pulse Oximetry 98 06/06/22 12:03 Oxygen Delivery Room Air 06/06/22 12:03 Pulse Rate 65 06/06/22 12:03 Respiratory Rate 18 06/06/22 12:03 Pulse Oximetry 98 06/06/22 12:14 Oxygen Delivery Room Air 06/06/22 12:14 Lab Data Result diagra
[2022-06-06 14:34] VITALS: BP 98/62; PULSE 69; RESP 16; O2SAT 98
== END 2022-06-06 17:21 | disposition home or self-care (01) ==
PROVIDERS: Emergency Provider Emergency Medicine; PCP Family Medicine
DX: R06.00 Dyspnea, unspecified (principal); Q90.9 Down syndrome, unspecified; F03.90 Unspecified dementia, unspecified severity, without behavioral disturbance, psychotic disturbance, mood disturbance, and anxiety; K21.9 Gastro-esophageal reflux disease without esophagitis; E03.9 Hypothyroidism, unspecified; M10.9 Gout, unspecified; Z79.82 Long term (current) use of aspirin
CPT/HCPCS: 36415; 71045; 80053; 85025; 99283